=== PATIENT | female | born 1975 | race African-American/Black ===

== ENCOUNTER 2021-10-24 00:25 | Emergency (ER) | payer SELFPAY ==
[~2021-10-24] VITALS: Ht 167.6 cm; Wt 109.9 kg
[2021-10-24 00:35] VITALS: BP 138/87
--- NOTE | 2021-10-24 00:41 | NUR ---
PT AMBULATED TO BED #12 Addendum: 10/24/21 at 0043 by [email or web address] PT MOVED TO BED #4
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
--- NOTE | 2021-10-24 01:03 | NUR ---
PT UNABLEE TO PROVIDE URINE AT THIS TIME, PROVIDED W WATER.
--- NOTE | 2021-10-24 01:05 | NUR ---
PT REFUSING BLOOD WORK, URINE COLLECTION, EKG OR OTHER NURSING INTERVENTIONS. ERMD AWARE.
--- NOTE | 2021-10-24 01:30 | NUR ---
ERMD ASSESSING PT.
[2021-10-24 01:50] VITALS: BP 138/87
--- NOTE | 2021-10-24 01:50 | NUR ---
Patient discharged with v/s stable. Written and verbal after care instructions given and explained. Patient alert, oriented and verbalized understanding of instructions. Ambulatory with steady gait. All questions addressed prior to discharge. ID band removed. Opportunity to ask questions provided and answered.
== END 2021-10-24 01:50 | disposition home or self-care (01) ==
LOC: MED 00:25
DX: F60.0 Paranoid personality disorder (principal); F32.9 Major depressive disorder, single episode, unspecified; F41.9 Anxiety disorder, unspecified
CPT/HCPCS: 93005; 99283